=== PATIENT | male | born 1990 | race American Indian/Alaskan Native ===

== ENCOUNTER 2017-01-12 15:27 | Emergency (ER) | payer BC ==
[2017-01-12 16:48] VITALS: BP 124/70
--- NOTE | 2017-01-12 16:48 | Emergency Department Report ---
Chief Complaint: Skin/Abscess/Foreign Body Stated Complaint: BOIL ON STOMACH Time Seen by Provider: 01/12/17 16:44 - HPI History of Present Illness: PT states he had a boil on his lower abd x 1 week. PT states he popped it twice but it keeps returning. - ROS Review of Systems: + fever + chills + nausea - Exam Physical Exam: pt looks well, nontoxic. 10 cm indurated, tender area to LLQ. + erythema, + warmth MSE screening note: Focused history and physical exam performed. Due to findings the following was ordered: labs ED Disposition for MSE Condition: Stable
[2017-01-12 17:08] LABS: Basophils % (Auto) 0.3 % (0.0-1.8); Eosinophils % (Auto) 0.7 % (0.0-4.3); Hematocrit 42.9 % (35.5-45.6); Hemoglobin 14.1 gm/dl (11.8-15.2); Mean Corpuscular HGB Conc 33 % (32-34); Mean Corpuscular Hemoglobin 29 pg (28-32); Mean Corpuscular Volume 89 fl (84-94); Platelet Count 232 K/mm3 (140-440); Red Blood Count 4.82 M/mm3 (3.65-5.03); Red Cell Distribution Width 13.4 % (13.2-15.2); White Blood Count 15.5 K/mm3 (4.5-11.0)
[2017-01-12 17:23] LABS: Alanine Aminotransferase 8 units/L (7-56); Albumin 4.2 g/dL (3.9-5); Albumin/Globulin Ratio 1.2 %; Alkaline Phosphatase 57 units/L (35-129); Anion Gap 17 mmol/L; Blood Urea Nitrogen 12 mg/dL (9-20); Calcium 9.2 mg/dL (8.4-10.2); Carbon Dioxide 27 mmol/L (22-30); Chloride 99.2 mmol/L (98-107); Glucose 121 mg/dL (75-100); Potassium 3.9 mmol/L (3.6-5.0); Sodium 139 mmol/L (137-145); Total Protein 7.6 g/dL (6.3-8.2)
[2017-01-12 20:49] LABS: Alanine Aminotransferase 8 units/L (7-56); Albumin/Globulin Ratio 1.1 %; Alkaline Phosphatase 53 units/L (35-129); Amylase 86 units/L (27-131); Creatine Kinase 123 units/L (55-170); Lipase 25 units/L (13-60); Total Protein 7.6 g/dL (6.3-8.2)
[2017-01-12 20:50] LABS: Bilirubin,Direct < 0.2 mg/dL (0-0.2); Bilirubin,Indirect 0.1 mg/dL
--- NOTE | 2017-01-17 11:02 | ED Elopement Review ---
ED Pt Elopement review - Results review Lab results: Laboratory Tests 01/12/17 01/12/17 01/12/17 16:51 16:51 16:51 WBC 15.5 H RBC 4.82 Hgb 14.1 Hct 42.9 MCV 89 MCH 29 MCHC 33 RDW 13.4 Plt Count 232 Lymph % (Auto) 13.7 [place] % (Auto) 9.9 H Eos % (Auto) 0.7 Baso % (Auto) 0.3 Lymph # 2.1 [place] # 1.5 H Eos # 0.1 Baso # 0.1 Seg Neutrophils % 75.4 H Seg Neutrophils # 11.7 H Sodium 139 Potassium 3.9 Chloride 99.2 Carbon Dioxide 27 Anion Gap 17 BUN 12 Creatinine 0.8 Estimated GFR > 60 BUN/Creatinine Ratio 15.00 Glucose 121 H Calcium 9.2 Total Bilirubin 0.20 0.30 Direct Bilirubin < 0.2 Indirect Bilirubin 0.1 AST 13 12 ALT 8 8 Alkaline Phosphatase 57 53 Total Creatine Kinase 123 Total Protein 7.6 7.6 Albumin 4.2 4.0 Albumin/Globulin Ratio 1.2 1.1 Amylase 86 Lipase 25 - Call Back decision Pt Call Back Decision: No action required
== END 2017-01-12 17:00 | disposition left against medical advice (07) ==
LOC: ED 15:27
DX: L02.221 Furuncle of abdominal wall (principal); Z53.21 Procedure and treatment not carried out due to patient leaving prior to being seen by health care provider
CPT/HCPCS: 36415; 80053; 80074; 82150; 82550; 83690; 85025